=== PATIENT | male | born 1930 | race Native Hawaiian/Other Pacific Islander ===

== ENCOUNTER 2018-04-05 18:56 | Emergency (ER) | payer OTHER, MEDICARE ==
[~2018-04-05] VITALS: Ht 167.6 cm; Wt 84.4 kg
[2018-04-05 19:26] LABS: PLATELET COUNT 203 K/uL (142-355)
[2018-04-05 20:39] VITALS: BP 131/84; TEMP 97.3
[2018-04-06] MEDS ORDERED: ASPIRIN 81 LOW81 MG PO (01:29)
[2018-04-06] MEDS ORDERED: FLUOXETINE10 MG PO (01:30)
[2018-04-06] MEDS ORDERED: ISOSORBIDE MONO PO (01:31)
[2018-04-06] MEDS ORDERED: LORA0.5T17 PO (01:32)
[2018-04-06] MEDS ORDERED: COZAAR100 MG PO (01:33)
[2018-04-06] MEDS ORDERED: METFORMIN HCL PO (01:34)
[2018-04-06] MEDS ORDERED: NORTRIPTYLIN50 MG PO (01:36)
[2018-04-06] MEDS ORDERED: PAROXETINE20 MG PO (01:37)
[2018-04-06] MEDS ORDERED: SIMV20TA2 PO (01:39)
== END 2018-04-05 20:42 | disposition other institution (70) ==
LOC: ED 18:56
DX: F03.91 Unspecified dementia, unspecified severity, with behavioral disturbance (principal); Z04.6 Encounter for general psychiatric examination, requested by authority
CPT/HCPCS: 36415; 80053; 81000; 85027; 93005; 99285